=== PATIENT | female | born 1975 | race Caucasian/White ===

== ENCOUNTER 2017-11-20 07:09 | Day surgery (SDC) | payer BC, OTHER ==
[~2017-11-20 07:09] MED LIST: Buffered Lidocaine 0.9% SYRIN* 5 ML/SYR SYRINGE INTRADERM ONE
[2017-11-20] MEDS ORDERED: fentaNYL* 50 MCG/ML 2 ML VIAL (100 MCG VIAL) ONE (08:04)
[2017-11-20] MEDS ORDERED: Lidocaine 2% PF * 5 ML VIAL ONE (08:04)
[2017-11-20] MEDS ORDERED: Propofol* 10 MG/ML 20 ML BTL IV PUSH ONE (08:04)
[2017-11-20] MEDS ORDERED: Midazolam* 1 MG/ML 2 ML VIAL (2 MG) ONE (08:05)
[2017-11-20] MEDS ORDERED: Rocuronium* 10 MG/ML VIAL ONE (08:07)
[2017-11-20] MEDS ORDERED: Bupivacaine 0.5% PF 10 ML VIAL INJ ONE (08:32)
[2017-11-20] MEDS ORDERED: Bupivacaine 0.25% W/EPI* 10 ML SDV ONE (08:37)
[2017-11-20] MEDS ORDERED: Metoclopramide IV* 5 MG/ML 2 ML VIAL ONE (08:59)
[2017-11-20] MEDS ORDERED: Ondansetron INJ* 2 MG/ML VIAL ONE (08:59)
[2017-11-20] MEDS ORDERED: Dexamethasone IV* 4 MG/ML 1 ML (4 MG) ONE (08:59)
[2017-11-20] MEDS ORDERED: Ketorolac INJ* 30 MG/ML 1 ML VIAL ONE (08:59)
[2017-11-20] MEDS ORDERED: EPHEDrine (Pressors)* 50 MG/ML VIAL ONE (09:26)
[2017-11-20] MEDS ORDERED: Neostigmine Methylsulfate* 2 MG/2 ML SYRINGE ONE ×3 (09:29→09:31)
[2017-11-20] MEDS ORDERED: Glycopyrrolate IV* 0.2 MG/ML 1 ML VIAL ONE (09:29)
[2017-11-20] MEDS ORDERED: HYDROmorphone INJ* 0.5 MG/0.5 ML SYRINGE ONE ×3 (09:35→10:09)
[2017-11-20] MEDS ORDERED: HYDROmorphone INJ* 0.5 MG/0.5 ML SYRINGE IV PRN (09:47)
[2017-11-20] MEDS ORDERED: Naloxone* 0.4 MG/ML 1 ML VIAL IV PRN (09:47)
[2017-11-20] MEDS ORDERED: Acetaminophen TAB* 325 MG PO PRN (09:47)
[2017-11-20] MEDS ORDERED: DiMENhydriNATE IV* 50 MG/ML VIAL IV PUSH PRN (09:47)
[2017-11-20] MEDS ORDERED: Ibuprofen TAB* 600 MG ONE (10:43)
[2017-11-20 10:51] VITALS: BP 104/64
--- NOTE | 2017-11-20 13:15 | OP ---
OPERATIVE REPORT: DATE OF OPERATION: 11/20/17 DATE OF : 79 SURGEON: Luis E Baez MD ANESTHESIA: General endotracheal tube. PRE-OP DIAGNOSIS: Desires permanent sterilization. POST-OP DIAGNOSIS: Desires permanent sterilization. OPERATIVE PROCEDURE: Laparoscopic bilateral tubal ligation. FINDINGS: On exam under anesthesia, uterus was mid position. On laparoscopy, the anterior bladder f lap appeared normal. Both tubes and ovaries appeared normal. Liver surface was smooth with small sca rring. DESCRIPTION OF PROCEDURE: The patient identified and procedure identified as a laparoscopic bilatera l tubal ligation. The patient was taken to the operating room, prepped and draped in usual fashion i n the dorsal lithotomy position under general anesthesia. A small infraumbilical incision was made, and a Veress needle inserted through this. There was some trouble with the increased pressure. The Veress needle was removed and a ClearView trocar was placed under direct visualization. The abdomen was inspected. The above findings were noted. A small amount of CO2 was underneath the omentum. A second trocar was inserted 2 cm above the pubic symphysis in the midline under direct visualization. The bipolar Kleppinger cautery was placed and the right fallopian tube was grasped in its midportion , followed out to its fimbriated ends and fulgurated x3. Care was taken to fulgurate the fimbria. S chalo procedure was carried on the left after following it out to its fimbriated ends. Good hemostasis was verified. All instruments removed from the abdomen. The abdomen was deflated off CO2. The ski n was closed with skin glue. Sponge and sponge stick removed from vagina and the patient returned to recovery room in stable condition. All sponge and instruments counts were correct. [id number]/[facility] #: [id number]
== END 2017-11-20 11:19 | disposition home or self-care (01) ==
LOC: OR 07:09
PROVIDERS: ATTEND Obstetrics & Gynecology
DX: Z30.2 Encounter for sterilization (principal); A60.00 Herpesviral infection of urogenital system, unspecified
CPT/HCPCS: 81025; A9270-GY; J1100; J1170; J1885; J2250; J2405; J2704; J2765; J3010